=== PATIENT | male | born 1955 | race Two or more races ===

== ENCOUNTER 2022-09-12 17:04 | Inpatient (IN) | payer OTHER ==
[~2022-09-12] VITALS: Ht 165.1 cm; Wt 62.6 kg
[2022-09-12 18:00] LABS: HEMATOCRIT 36.4 % (36.7-47.1); MEAN CORPUSCULAR HEMOGLOBIN 30.9 uug (23.8-33.4); MEAN CORPUSCULAR VOLUME 91.6 fL (73.0-96.2); PLATELET COUNT (AUTO) 182 K/uL (152-348)
[2022-09-12] MEDS ORDERED: FERR325T6 PO (18:15)
[2022-09-12] MEDS ORDERED: CALC667T2 PO (18:15)
[2022-09-12] MEDS ORDERED: NIFE30TA2 PO (18:15)
[2022-09-12] MEDS ORDERED: BLOO-668 IN (18:15)
[2022-09-12] MEDS ORDERED: POLY17PO4 PO (18:15)
[2022-09-12] MEDS ORDERED: ASPI81TA31 PO (18:15)
[2022-09-12] MEDS ORDERED: ATOR80TA PO (18:15)
[2022-09-12 18:45] LABS: CREATININE 4.4 mg/dL (0.6-1.3)
[2022-09-12] MEDS ORDERED: PANTOPRAZOLE SODIUM 40 MG VIAL IV ONE (18:45)
[2022-09-12] MEDS ORDERED: IV NORMAL SALINE 500 ML BAG IV ONE ×2 (18:45→21:45)
[2022-09-12 18:51] LABS: BILIRUBIN,TOTAL 0.6 mg/dL (0.2-1.0)
[2022-09-12] MEDS ORDERED: PANTOPRAZOLE SODIUM 40 MG VIAL ONE (18:52)
[2022-09-12] MEDS ORDERED: CEFTRIAXONE 1 G in IV DEXTROSE 5% 50 ML IV ONE (19:15)
[2022-09-12] MEDS ORDERED: CEFTRIAXONE /D5W 50ML IVPB **ER PYXIS IV ONE (19:38)
[2022-09-12] MEDS ORDERED: FENTANYL CITRATE 100 MCG/2 ML AMPUL ONE (20:09)
[2022-09-12] MEDS ORDERED: IOHEXOL 300MG/ML 100 ML INFUS..BTL ONE (20:14)
[2022-09-12] MEDS ORDERED: SWABABLE VALVE TRANSFER SET EA MC ONE ×2 (20:14→21:55)
[2022-09-12] MEDS ORDERED: IV NORMAL SALINE 250 ML IV ONE ×2 (20:15→21:55)
[2022-09-12] MEDS ORDERED: FENTANYL CITRATE 100 MCG/2 ML AMPUL IV ONE (20:15)
--- NOTE | 2022-09-12 20:41 | NUR ---
Vss at this time, pt. resting in bed 115/73,99,97%
[2022-09-12] MEDS ORDERED: CEFEPIME HCL 1 G in IV DEXTROSE 5% 50 ML IV ONE (21:00)
[2022-09-12] MEDS ORDERED: VANCOMYCIN IV 1,000 MG in IV DEXTROSE 5% 250 ML IV ONE (21:00)
[2022-09-12] MEDS ORDERED: MEROPENEM 1 G in IV NORMAL SALINE 100 ML IV ONE (21:15)
[2022-09-12] MEDS ORDERED: MEROPENEM 1GM/NS 100ML IVPB **ER PYXIS ONLY IV ONE (21:29)
--- NOTE | 2022-09-12 21:38 | NUR ---
temp 99.6, pt. picked up by [employer] for CT
[2022-09-12] MEDS ORDERED: IOHEXOL 350 100 ML INFUS..BTL ONE (21:55)
[2022-09-13] MEDS ORDERED: HEPARIN/D5W DRIP 500 ML IV PRN (02:30)
[2022-09-13] MEDS ORDERED: REMEDY ESSENTIAL ZINC PASTE 113 GM TP PRN (03:00)
[2022-09-13] MEDS ORDERED: HEPARIN SODIUM,PORCINE 5,000 UNITS/ML VIAL SQ SCH (03:00)
[2022-09-13] MEDS ORDERED: IV D5/ 0.9% NACL 1,000 ML IV PRN (03:00)
[2022-09-13] MEDS ORDERED: DEXTROSE 50% 50 ML DISP.SYRIN IV PRN (03:00)
[2022-09-13] MEDS: PANTOPRAZOLE SODIUM 40 MG VIAL IV SCH ×3 (03:00→20:24)
[2022-09-13] MEDS ORDERED: MAGNESIUM HYDROXIDE 30 ML LIQUID UDC PO PRN (03:00)
[2022-09-13 03:41] LABS: MEAN CORPUSCULAR HEMOGLOBIN 31.2 uug (23.8-33.4); MEAN CORPUSCULAR VOLUME 91.9 fL (73.0-96.2); PLATELET COUNT (AUTO) 157 K/uL (152-348)
[2022-09-13 03:48] LABS: BILIRUBIN,TOTAL 0.3 mg/dL (0.2-1.0); MAGNESIUM 1.9 mg/dL (1.8-2.4); PHOSPHOROUS 3.9 mg/dL (2.5-4.9); TOTAL PROTEIN, SERUM 5.8 g/dL (6.4-8.2)
[2022-09-13] MEDS ORDERED: HEPARIN SODIUM,PORCINE 5,000 UNITS/ML VIAL ONE (04:27)
[2022-09-13] MEDS ORDERED: PANTOPRAZOLE SODIUM 40 MG VIAL ONE (05:19)
[2022-09-13 05:23] LABS: HEMATOCRIT 29.2 % (36.7-47.1); MEAN CORPUSCULAR HEMOGLOBIN 31.1 uug (23.8-33.4); MEAN CORPUSCULAR VOLUME 91.9 fL (73.0-96.2); PLATELET COUNT (AUTO) 143 K/uL (152-348)
--- NOTE | 2022-09-13 05:31 | NUR ---
endorsed to Komal VILLANUEVA, transferred pt to RM 301B
[2022-09-13 05:51] LABS: BILIRUBIN,TOTAL 0.3 mg/dL (0.2-1.0); MAGNESIUM 1.7 mg/dL (1.8-2.4); PHOSPHOROUS 3.7 mg/dL (2.5-4.9); POTASSIUM 4.9 mmol/L (3.5-5.1)
[2022-09-13] MEDS ORDERED: METRONIDAZOLE 500 MG/NS 100ML 500 MG in PREMIXED 1 EACH IV SCH (06:00)
[2022-09-13] MEDS ORDERED: MEROPENEM 1 G in IV NORMAL SALINE 100 ML IV SCH (06:00)
[2022-09-13] MEDS: BLOOD SUGAR DIAGNOSTIC 1 EACH STRIP VI SCH ×3 (06:47→17:38)
--- NOTE | 2022-09-13 06:47 | NUR ---
Received patient from ER by juan carlos at 0545. Chief complaint is septic shock with secondary to GI bleed. Has hx of ESRD, DM, HTN and mesenteric ischemia. Heparin was administered for the mesenteric ischemia. Last blood glucose was 354, now 296. Is AAOx4, Belgian speaking and ambulatory. Is in no apparent distress and no complaints of pain. Left AC IV site is intact and patent. Dialysis site is on Right chest wall, PermCath. Concerns were communicated and verbally understood. Safety and comfort measures enforced.
[2022-09-13 07:40] VITALS: BP 127/59
[2022-09-13] MEDS ORDERED: CALCIUM ACETATE 667 MG CAP/TAB PO SCH ×2 (08:00→12:00)
[2022-09-13] MEDS: MEROPENEM 500 MG in IV NORMAL SALINE 50 ML IV SCH ×2 (08:55→09:09)
[2022-09-13] MEDS: FERROUS SULFATE 325 MG TABEC PO SCH (08:56)
[2022-09-13] MEDS: IV D5 1/2 NS 1000 ML 1,000 ML IV PRN (09:08)
[2022-09-13] MEDS: INSULIN REGULAR, HUMAN 300 UNIT/3 ML VIAL SQ PRN (09:26)
[2022-09-13] MEDS ORDERED: MAGNESIUM OXIDE 400 MG TABLET PO ONE (10:45)
[2022-09-13] MEDS: METRONIDAZOLE 500 MG/NS 100ML 500 MG in PREMIXED 1 EACH IV SCH ×2 (11:08→20:23)
[2022-09-13 11:47] VITALS: BP 120/65
[2022-09-13] MEDS: HEPARIN SODIUM,PORCINE 5,000 UNITS/ML VIAL SQ SCH ×2 (14:19→21:41)
[2022-09-13 15:44] VITALS: BP 124/65
--- NOTE | 2022-09-13 16:00 | NUR ---
Noted x 3 diarrhea black. notified Malini. rechech h/h @2100 ordered. PT is in no acute distress. PT with rn lpn cna being dialyzed.
--- NOTE | 2022-09-13 18:30 | NUR ---
Pt dialyzed. took out 1500. PT skin dry and intact. Call light is within reach.
[2022-09-13 20:00] VITALS: BP 91/38
[2022-09-13] MEDS: ATORVASTATIN 40 MG TABLET PO SCH (20:24)
[2022-09-13 20:59] LABS: HEMATOCRIT 30.4 % (36.7-47.1)
[2022-09-13] MEDS: ONDANSETRON 4 MG/2 ML VIAL IV PRN (21:39)
[2022-09-14] VITALS: BP 111/56
[2022-09-14] MEDS: BLOOD SUGAR DIAGNOSTIC 1 EACH STRIP VI SCH ×4 (00:05→17:40)
[2022-09-14] MEDS: INSULIN REGULAR, HUMAN 300 UNIT/3 ML VIAL SQ PRN ×2 (00:08→12:31)
[2022-09-14] MEDS: IV D5 1/2 NS 1000 ML 1,000 ML IV PRN ×2 (00:14→10:51)
[2022-09-14] MEDS: METRONIDAZOLE 500 MG/NS 100ML 500 MG in PREMIXED 1 EACH IV SCH ×3 (02:28→18:12)
[2022-09-14 05:37] VITALS: BP 93/48
[2022-09-14] MEDS: ACETAMINOPHEN 325 MG TABLET PO PRN (06:16)
[2022-09-14] MEDS: HEPARIN SODIUM,PORCINE 5,000 UNITS/ML VIAL SQ SCH ×4 (06:16→22:03)
[2022-09-14 06:50] LABS: HEMATOCRIT 28.2 % (36.7-47.1); MEAN CORPUSCULAR HEMOGLOBIN 31.5 uug (23.8-33.4); MEAN CORPUSCULAR VOLUME 92.2 fL (73.0-96.2); PLATELET COUNT (AUTO) 141 K/uL (152-348)
[2022-09-14 07:08] LABS: MAGNESIUM 1.9 mg/dL (1.8-2.4)
[2022-09-14 08:00] VITALS: BP 87/47
--- NOTE | 2022-09-14 08:00 | NUR ---
AWAKE ALERT AND ORIENTED X3 L[place] SPEAKING, DENIES DISTRESS. STILL C/O ABDOMINAL PAIN. KEPT NPO IVF AT 75 MLS/HR SR ON MONITOR.
[2022-09-14] MEDS: FERROUS SULFATE 325 MG TABEC PO SCH (08:32)
[2022-09-14] MEDS: PANTOPRAZOLE SODIUM 40 MG VIAL IV SCH ×2 (08:32→21:59)
[2022-09-14] MEDS: MEROPENEM 500 MG in IV NORMAL SALINE 50 ML IV SCH ×2 (08:34→21:58)
--- NOTE | 2022-09-14 12:00 | NUR ---
C/O ON AND OFF NAUSEA AND ABDOMINAL PAIN, SR ON MONITOR. OBSERVED
[2022-09-14] MEDS: ONDANSETRON 4 MG/2 ML VIAL IV PRN (12:38)
--- NOTE | 2022-09-14 12:38 | NUR ---
MEDICATED WITH ZOFRAN FOR NAUSEA, OBSERVED
--- NOTE | 2022-09-14 13:30 | NUR ---
HAD LOOSE DARK/BLOODY STOOL, NAUSEA SUBSIDED
[2022-09-14 14:06] LABS: HEPATITIS B SURFACE AG Negative (Negative)
--- NOTE | 2022-09-14 14:53 | NUR ---
NATTY AMBRIZ NOTIFIED OF 9.6.2 PATIENT STILL HAVING MELENA. ADVISED TO HOLD HEPARIN SQ
[2022-09-14 16:00] VITALS: BP 135/73
--- NOTE | 2022-09-14 20:00 | NUR ---
RECD PT IN BED, IN NO ACUTE DISTRESS, FAMILY AT BEDSIDE,NPO MAINTAINED , ORAL CARE DONE.NO NAUSEA OR VOMITING NOTED.RESTED FAIRLY WEL;L.IVF INFUSINGWELL ONPERIPHERAL IV SITE ONRIGHT FOREARM.
[2022-09-14 21:03] VITALS: BP 163/83
--- NOTE | 2022-09-14 22:00 | NUR ---
HEPARIN HELD PER MD ORDER
--- NOTE | 2022-09-14 22:00 | NUR ---
HAD A LARGE BM, GREENISH IN COLOR, NO BLOOD NOTED,ALERT ,ORIENTED. NO COMPLAINTS PRESENTED.DIALYSIS WILL BE TOMORROW.
[2022-09-14] MEDS: ATORVASTATIN 40 MG TABLET PO SCH (22:01)
[2022-09-15] MEDS: METRONIDAZOLE 500 MG/NS 100ML 500 MG in PREMIXED 1 EACH IV SCH ×3 (01:25→18:05)
[2022-09-15] MEDS: HEPARIN SODIUM,PORCINE 5,000 UNITS/ML VIAL SQ SCH ×4 (01:26→21:21)
--- NOTE | 2022-09-15 02:00 | NUR ---
SLEEPING SOUNDLY,NO DIABETIC CRISES NOTED.
[2022-09-15 04:26] VITALS: BP 133/75
[2022-09-15] MEDS: BLOOD SUGAR DIAGNOSTIC 1 EACH STRIP VI SCH ×5 (06:00→23:53)
--- NOTE | 2022-09-15 06:00 | NUR ---
[id number] PT A/OX4. PT HAS BEEN SLEEPING QUIETLY THROUGH MOST OF THE NIGHT. PT SPEAKS SPAN AND SOME ENG. PT DENIES PAIN. PT HAS H.DIALYSIS ORD FOR TODAY-09/15/22(LAST H.D WAS 09/12/22-1.5L TAKEN OFF). RECEIVED REPORT FROM RICH SIMMONS. PT HAS H.DIALYSIS ACCESS VIA RIGHT CHEST PERMACATH. IV I/P VIARIGHT FA-20G D51/2NS@75CC/HR. VS HAVE BEEN STABLE. GEN. COND HAS BEEN STABLE. LISA VILLANUEVA
[2022-09-15 07:07] LABS: HEMATOCRIT 27.9 % (36.7-47.1); MEAN CORPUSCULAR VOLUME 92.4 fL (73.0-96.2); PLATELET COUNT (AUTO) 146 K/uL (152-348)
[2022-09-15 07:17] LABS: POTASSIUM 3.4 mmol/L (3.5-5.1)
--- NOTE | 2022-09-15 07:45 | NUR ---
RESTING COMFORTABLY IN BED NO SS OF DISTRESS EXCEPT FOR ABDOMINAL DISCOMFORT. REMAINS NPO WITH D5 1/2 NS AT 75 MLS/HR. SR ON MONITOR. COMPLETE AM CARE DONE
[2022-09-15] MEDS: MEROPENEM 500 MG in IV NORMAL SALINE 50 ML IV SCH (08:05)
[2022-09-15] MEDS: FERROUS SULFATE 325 MG TABEC PO SCH (08:05)
[2022-09-15] MEDS: PANTOPRAZOLE SODIUM 40 MG VIAL IV SCH ×2 (08:05→20:42)
[2022-09-15] MEDS: IV D5 1/2 NS 1000 ML 1,000 ML IV PRN (08:56)
--- NOTE | 2022-09-15 12:00 | NUR ---
SEEN BY HOSPITALIST ADVISED TO CONTINUE TO HOLD HEPARIN, STILL HAVING BLACK STOOL AND HGB 9.3. CONTINUE NPO ORDERED
[2022-09-15 12:11] VITALS: BP 133/81
[2022-09-15] MEDS: INSULIN REGULAR, HUMAN 300 UNIT/3 ML VIAL SQ PRN (12:28)
[2022-09-15 15:50] VITALS: BP 128/85
[2022-09-15 19:57] VITALS: BP 128/64
--- NOTE | 2022-09-15 21:22 | NUR ---
heparin not given; pt remains having melena; held per MD
[2022-09-16 00:33] VITALS: BP 141/74
[2022-09-16] MEDS: IV D5 1/2 NS 1000 ML 1,000 ML IV PRN ×2 (02:27→21:00)
[2022-09-16] MEDS: METRONIDAZOLE 500 MG/NS 100ML 500 MG in PREMIXED 1 EACH IV SCH ×3 (02:32→18:19)
--- NOTE | 2022-09-16 03:15 | NUR ---
CT ABD COMPLETED. CAR LUBRICATOR. NOTIFIED TO START HD. Addendum: 09/16/22 at 1724 by LUIS GONZALES RN TIME STARTED WAS 1325.
[2022-09-16 04:12] VITALS: BP 158/89
[2022-09-16] MEDS: HEPARIN SODIUM,PORCINE 5,000 UNITS/ML VIAL SQ SCH (05:20)
[2022-09-16] MEDS: BLOOD SUGAR DIAGNOSTIC 1 EACH STRIP VI SCH ×4 (05:20→20:48)
[2022-09-16 06:29] LABS: MEAN CORPUSCULAR HEMOGLOBIN 30.7 uug (23.8-33.4); MEAN CORPUSCULAR VOLUME 92.5 fL (73.0-96.2); PLATELET COUNT (AUTO) 156 K/uL (152-348)
[2022-09-16 06:37] LABS: POTASSIUM 3.3 mmol/L (3.5-5.1)
[2022-09-16 06:47] LABS: CREATININE 8.7 mg/dL (0.6-1.3)
[2022-09-16 07:46] VITALS: BP 145/77
[2022-09-16] MEDS: PANTOPRAZOLE SODIUM 40 MG VIAL IV SCH ×2 (08:40→20:31)
[2022-09-16] MEDS: FERROUS SULFATE 325 MG TABEC PO SCH (08:40)
--- NOTE | 2022-09-16 09:00 | NUR ---
AWAKE, ALERT & ORIENTED. NO C/O DISCOMFORT. NPO. AT BEDSIDE. AWAITING RADIOLOGY FOR CT OF ABD. WITH CONTRAST, PRIOR TO DIALYSIS.
[2022-09-16 11:37] VITALS: BP 175/90
[2022-09-16] MEDS: INSULIN REGULAR, HUMAN 300 UNIT/3 ML VIAL SQ PRN (12:25)
[2022-09-16] MEDS ORDERED: IOHEXOL 300MG/ML 100 ML INFUS..BTL ONE (12:56)
[2022-09-16] MEDS ORDERED: SWABABLE VALVE TRANSFER SET EA MC ONE (12:56)
[2022-09-16] MEDS ORDERED: IV NORMAL SALINE 250 ML IV ONE (12:56)
--- NOTE | 2022-09-16 15:15 | NUR ---
HD COMPLETED AFTER 2 HOURS, AND 1500CC REMOVED.
[2022-09-16 15:41] VITALS: BP 130/80
[2022-09-16] MEDS ORDERED: DEXTROSE 50% 50 ML DISP.SYRIN IV PRN (19:00)
--- NOTE | 2022-09-16 19:30 | NUR ---
Received patient alert oriented, speak sudanese, no sob no chest pain, tele sinus rhythm, no complain of pain, r chest perma cath dressing intact, r upper arm midline intact, cont to monitor.
[2022-09-16] MEDS: ATORVASTATIN 40 MG TABLET PO SCH (20:31)
[2022-09-16 20:48] VITALS: BP 165/89
[2022-09-16] MEDS: HEPARIN SODIUM,PORCINE 5,000 UNITS/ML VIAL IV SCH (21:36)
[2022-09-17] VITALS: BP 145/77
[2022-09-17] MEDS: METRONIDAZOLE 500 MG/NS 100ML 500 MG in PREMIXED 1 EACH IV SCH ×3 (03:30→18:21)
[2022-09-17] MEDS: ACETAMINOPHEN 325 MG TABLET PO PRN (03:55)
--- NOTE | 2022-09-17 04:29 | NUR ---
Patient has elevated BP 172/91, notify Frankie Zuniga NP with order.
[2022-09-17 04:40] VITALS: BP 172/91
[2022-09-17] MEDS: hydrALAZINE HCL 20 MG/1 ML VIAL IV PRN (05:01)
[2022-09-17] MEDS: HEPARIN SODIUM,PORCINE 5,000 UNITS/ML VIAL IV SCH ×3 (05:14→22:22)
[2022-09-17] MEDS: BLOOD SUGAR DIAGNOSTIC 1 EACH STRIP VI SCH ×4 (06:01→21:00)
[2022-09-17 07:56] VITALS: BP 141/82
[2022-09-17 07:56] LABS: HEMATOCRIT 28.7 % (36.7-47.1); MEAN CORPUSCULAR HEMOGLOBIN 30.6 uug (23.8-33.4); MEAN CORPUSCULAR VOLUME 91.7 fL (73.0-96.2); PLATELET COUNT (AUTO) 151 K/uL (152-348)
[2022-09-17 08:02] LABS: CREATININE 6.4 mg/dL (0.6-1.3); POTASSIUM 3.6 mmol/L (3.5-5.1)
[2022-09-17] MEDS: FERROUS SULFATE 325 MG TABEC PO SCH (09:53)
[2022-09-17] MEDS: PANTOPRAZOLE SODIUM 40 MG VIAL IV SCH ×2 (09:53→20:54)
[2022-09-17] MEDS: INSULIN REGULAR, HUMAN 300 UNIT/3 ML VIAL SQ PRN ×2 (11:52→17:08)
[2022-09-17 12:00] VITALS: BP 179/95
[2022-09-17 16:09] VITALS: BP 164/90
[2022-09-17] MEDS: IV D5 1/2 NS 1000 ML 1,000 ML IV PRN (18:24)
[2022-09-17 20:00] VITALS: BP 155/82
[2022-09-17] MEDS: ATORVASTATIN 40 MG TABLET PO SCH (20:54)
[2022-09-18] MEDS: METRONIDAZOLE 500 MG/NS 100ML 500 MG in PREMIXED 1 EACH IV SCH ×3 (03:37→18:01)
[2022-09-18 04:00] VITALS: BP 141/77
[2022-09-18 05:28] LABS: HEMATOCRIT 30.4 % (36.7-47.1); MEAN CORPUSCULAR VOLUME 92.2 fL (73.0-96.2); PLATELET COUNT (AUTO) 157 K/uL (152-348)
[2022-09-18 05:44] LABS: POTASSIUM 3.6 mmol/L (3.5-5.1)
[2022-09-18 05:50] LABS: CREATININE 7.8 mg/dL (0.6-1.3)
[2022-09-18] MEDS: HEPARIN SODIUM,PORCINE 5,000 UNITS/ML VIAL IV SCH ×2 (06:07→13:42)
[2022-09-18] MEDS: BLOOD SUGAR DIAGNOSTIC 1 EACH STRIP VI SCH ×4 (06:29→20:40)
--- NOTE | 2022-09-18 06:58 | NUR ---
Patient alert awake, assisted with toileting still with soft brown black bowel movement in moderate amount, BP stable, no complain of pain, patient creatinine level 7.[address] Saucedo, no complain of pain, cont to monitor.
--- NOTE | 2022-09-18 07:53 | NUR ---
patient resting comfortably in bed, NPO, continue on hydration as ordered. permacath intact to right upper chest, no signs of bleeding noted.
[2022-09-18] MEDS: PANTOPRAZOLE SODIUM 40 MG VIAL IV SCH ×2 (08:25→20:28)
[2022-09-18] MEDS: FERROUS SULFATE 325 MG TABEC PO SCH (08:25)
[2022-09-18] MEDS: INSULIN REGULAR, HUMAN 300 UNIT/3 ML VIAL SQ PRN ×2 (10:56→17:28)
[2022-09-18 11:25] VITALS: BP 157/86
[2022-09-18 13:31] LABS: *OCCULT BLOOD STOOL POSITIVE (NEGATIVE)
--- NOTE | 2022-09-18 15:23 | NUR ---
NATTY LEYVA made aware that occult blood is positive, and asked PROFESSIONAL POKER PLAYER if it is ok to give dinner to patient, per PROFESSIONAL POKER PLAYER she will get back to me after she gets answer from GI
[2022-09-18 15:24] VITALS: BP 176/92
[2022-09-18] MEDS: IV D5 1/2 NS 1000 ML 1,000 ML IV PRN (18:33)
[2022-09-18 18:58] LABS: HEMATOCRIT 30.4 % (36.7-47.1)
--- NOTE | 2022-09-18 19:17 | NUR ---
per EQUALIZER OPERATOR GI dr Guerrero is aware to see the patient, patient is alert, oriented x4, permacath intact on right upper chest, no acute bleeding noted from permacath, no acute distress noted
[2022-09-18 20:00] VITALS: BP 171/89
[2022-09-18] MEDS: hydrALAZINE HCL 20 MG/1 ML VIAL IV PRN (20:29)
[2022-09-18] MEDS: ATORVASTATIN 40 MG TABLET PO SCH (20:38)
[2022-09-18] MEDS: ACETAMINOPHEN 325 MG TABLET PO PRN (20:38)
[2022-09-18 21:00] VITALS: BP 148/69
[2022-09-19] MEDS: METRONIDAZOLE 500 MG/NS 100ML 500 MG in PREMIXED 1 EACH IV SCH ×3 (02:08→18:50)
[2022-09-19 04:00] VITALS: BP_SYST 133; BP_SYST 147; BP_DIAS 61; BP_DIAS 83
[2022-09-19] MEDS: BLOOD SUGAR DIAGNOSTIC 1 EACH STRIP VI SCH ×4 (06:27→21:17)
[2022-09-19 07:33] LABS: HEMATOCRIT 27.6 % (36.7-47.1); MEAN CORPUSCULAR HEMOGLOBIN 30.3 uug (23.8-33.4); MEAN CORPUSCULAR VOLUME 92.2 fL (73.0-96.2); PLATELET COUNT (AUTO) 149 K/uL (152-348)
[2022-09-19 07:43] LABS: POTASSIUM 3.7 mmol/L (3.5-5.1)
[2022-09-19 08:00] LABS: CREATININE 8.6 mg/dL (0.6-1.3)
[2022-09-19] MEDS: PANTOPRAZOLE SODIUM 40 MG VIAL IV SCH ×2 (09:01→21:59)
[2022-09-19] MEDS: FERROUS SULFATE 325 MG TABEC PO SCH (09:01)
[2022-09-19] MEDS: INSULIN REGULAR, HUMAN 300 UNIT/3 ML VIAL SQ PRN ×3 (09:05→21:48)
[2022-09-19 10:57] VITALS: BP 162/84
[2022-09-19 15:53] VITALS: BP 159/82
[2022-09-19] MEDS: IV D5 1/2 NS 1000 ML 1,000 ML IV PRN (18:50)
[2022-09-19 20:00] VITALS: BP 156/75
--- NOTE | 2022-09-19 20:11 | NUR ---
RECEIVED REPORT FROM ELIO SCHWARZ NOC SHIFT. PATIENT IS ALERT AND & ORIENTED X4, AND ABLE TO SPEAKS SOME ITALIAN. PATIENT PREFERS TO SPEAKS [place] CITIZ[place]. PATIENT HAD 2 BOWEL MOVEMENTS AND DENIES DARK, BLACK, OR RED COLORED STOOL. PATIENT HAD ONE VOMITING EPISODE IN THE MORNING. PER PATIENT, HE STATES THE VOMIT WAS CLEAR AND DENIES WANTING NAUSEA MEDICATIONS. PATIENT TOLERATES CLEAR LIQUIDS DIET WELL WITH NO REPORTS OF NAUSEA OR VOMITING FOR THE REMINDER OF THE SHIFT. PATIENT RIGHT UPPER MIDLINE WAS DISLODGED AT 11:27AM. RN NOTIFIED PROVIDER. PROVIDER CLEARED FOR NEW MIDLINE INSERTION. NEW MIDLINE INSERTED ON THE LEFT UPPER ARM, PATENT AND DRAINING. PATIENT PENDING FOR HEMODIALYSIS. RN DID NOT ADMIN BLOOD PRESSURE WAITING FOR HEMODIALYSIS TO COME. NO ACUTE DISTRESSED NOTED. FALL PRECAUTIONS OBSERVED, BED IN LOWEST POSITION AND BED ALARM ACTIVATED. ALL NEEDS MET AT THIS TIME. ENDORSED CARE TO ELIO SCHWARZ, FOR CONTINUATION OF CARE.
[2022-09-19] MEDS: ATORVASTATIN 40 MG TABLET PO SCH (21:18)
[2022-09-19] MEDS: hydrALAZINE HCL 20 MG/1 ML VIAL IV PRN (21:59)
[2022-09-20 00:12] LABS: HEMATOCRIT 28.5 % (36.7-47.1)
[2022-09-20] MEDS: METRONIDAZOLE 500 MG/NS 100ML 500 MG in PREMIXED 1 EACH IV SCH ×2 (03:16→10:56)
[2022-09-20 04:00] VITALS: BP 147/76
[2022-09-20] MEDS: BLOOD SUGAR DIAGNOSTIC 1 EACH STRIP VI SCH ×2 (06:43→11:06)
[2022-09-20 07:13] LABS: CREATININE 6.4 mg/dL (0.6-1.3); POTASSIUM 3.4 mmol/L (3.5-5.1)
[2022-09-20 07:22] LABS: HEMATOCRIT 28.1 % (36.7-47.1); MEAN CORPUSCULAR HEMOGLOBIN 30.4 uug (23.8-33.4); MEAN CORPUSCULAR VOLUME 92.6 fL (73.0-96.2); PLATELET COUNT (AUTO) 143 K/uL (152-348)
[2022-09-20] MEDS: FERROUS SULFATE 325 MG TABEC PO SCH (08:12)
[2022-09-20] MEDS: PANTOPRAZOLE SODIUM 40 MG VIAL IV SCH (08:29)
[2022-09-20] MEDS ORDERED: POTASSIUM CHLORIDE 50 ML IV SCH (10:00)
[2022-09-20] MEDS: IV D5 1/2 NS 1000 ML 1,000 ML IV PRN (10:53)
[2022-09-20] MEDS ORDERED: METR500T PO (11:22)
[2022-09-20] MEDS: INSULIN REGULAR, HUMAN 300 UNIT/3 ML VIAL SQ PRN (11:26)
[2022-09-20 11:37] VITALS: BP 150/43
--- NOTE | 2022-09-20 14:54 | NUR ---
dc orders received noted and carried out,dc midline per md orders,dc instruction and education given to the pt .pt left the facility via private car in stable condition
[2022-09-20] MEDS ORDERED: PANTOPRAZOLE SODIUM 40 MG TABLET.DR PO SCH (17:00)
== END 2022-09-20 15:02 | disposition home health service (06) | DRG 720 ==
LOC: ER 17:07 → TELE3 23:55 → TELE-TD3 09-13 05:25 → MEDSURG3 09-17 14:34
PROVIDERS: ADMIT Registered Nurse; ATTEND Nurse Practitioner Acute Care
PROC: 5A1D70Z Performance of Urinary Filtration, Intermittent, Less than 6 Hours Per Day (ICD-10-PCS; principal; 2022-09-13)
PROC: 05H533Z Insertion of Infusion Device into Right Subclavian Vein, Percutaneous Approach (ICD-10-PCS; 2022-09-15)
PROC: B546ZZA Ultrasonography of Right Subclavian Vein, Guidance (ICD-10-PCS; 2022-09-15)
PROC: B547ZZA Ultrasonography of Left Subclavian Vein, Guidance (ICD-10-PCS; 2022-09-19)
PROC: 05H633Z Insertion of Infusion Device into Left Subclavian Vein, Percutaneous Approach (ICD-10-PCS; 2022-09-19)
DX: A41.9 Sepsis, unspecified organism (principal); K55.019 Acute (reversible) ischemia of small intestine, extent unspecified; R65.21 Severe sepsis with septic shock; I12.0 Hypertensive chronic kidney disease with stage 5 chronic kidney disease or end stage renal disease; D63.1 Anemia in chronic kidney disease; K92.2 Gastrointestinal hemorrhage, unspecified; N18.6 End stage renal disease; E11.22 Type 2 diabetes mellitus with diabetic chronic kidney disease; Z99.2 Dependence on renal dialysis; Z20.822 Contact with and (suspected) exposure to COVID-19; A09 Infectious gastroenteritis and colitis, unspecified; E78.5 Hyperlipidemia, unspecified; E87.6 Hypokalemia; Z79.01 Long term (current) use of anticoagulants; N25.0 Renal osteodystrophy; D50.0 Iron deficiency anemia secondary to blood loss (chronic); E11.65 Type 2 diabetes mellitus with hyperglycemia; Z79.4 Long term (current) use of insulin
CPT/HCPCS: 36415; 71045; 74160; 83605; 83690; 83735; 83970; 84100; 84443; 84484; 85018; 85025; 85730; 86706; 86850; 86900; 86901; 87040; 87340; 90937; 93005; 93307; A4663; C9113; G0378; J0360; J0696; J1644; J1815; J2185; J2405; J3010; J3480; J3490; J7040; Q9967